=== PATIENT | male | born 1935 | race Caucasian/White ===

== ENCOUNTER → 2016-10-06 | Outpatient (CLI) | payer OTHER ==
[~2016-10-06] MED LIST: ALBUAER19 INH; ASPCH81 PO; ATEN-173 PO; CZR50 PO; HYG25 PO; INSUINJ SC; INSUINJ7 SC; LCTX PO; MOME110A2 IN; MULT-190 PO; PANT40TA PO; SYN50 PO; THEO1TAB14 PO; VANC1INJ10 IV; VANC1INJ10 IV.
--- NOTE | 2016-10-06 09:03 | DIAGNOSTIC IMAGING REPORT ---
RENAL ULTRASOUND HISTORY: Renal insufficiency CHRONIC KIDNEY DISEASE STAGE 3 COMPARISON: None. FINDINGS: Right kidney: Maximum dimension 9.3 cm. No evidence for hydronephrosis. Normal corticomedullary differentiation and cortical thickness. Left kidney: Maximum dimension 11.6 cm. No evidence for hydronephrosis. Normal corticomedullary differentiation and cortical thickness. Bladder: No bladder wall thickening. The bilateral ureteral jets were identified. IMPRESSION: Normal renal ultrasound. Electronically signed by: Tyler Lopez M.D. 10/06/2016 9:02 AM Dictated Date/Time: 10/06/2016 9:01 AM
== END | disposition home or self-care (01) ==
LOC: C.ULTR 08:23
PROVIDERS: ATTEND Family Medicine
DX: N18.3 Chronic kidney disease, stage 3 (moderate) (principal)

== ENCOUNTER → 2016-12-04 | Outpatient (CLI) | payer OTHER ==
[~2016-12-04] MED LIST changes: -THEO1TAB14 PO; +THEO300T14 PO; +[UNRECOGNIZED DRUG - OTHER] INH
== END | disposition home or self-care (01) ==
LOC: C.LABSPEC 17:32
PROVIDERS: ATTEND Podiatrist Foot & Ankle Surgery
DX: L97.509 Non-pressure chronic ulcer of other part of unspecified foot with unspecified severity (principal)

== ENCOUNTER → 2017-04-16 | Outpatient (CLI) | payer OTHER ==
[~2017-04-16] MED LIST changes: +THEO1TAB14 PO; -THEO300T14 PO; -[UNRECOGNIZED DRUG - OTHER] INH
--- NOTE | 2017-04-16 10:31 | DIAGNOSTIC IMAGING REPORT ---
MRI OF THE RIGHT FOOT WITHOUT CONTRAST CLINICAL HISTORY: Right forefoot ulceration. Evaluate for osteomyelitis. COMPARISON STUDY: Right foot radiographs January 08, 2012. TECHNIQUE: Utilizing 1.5 Paty magnet and dedicated coil, multiplanar, multiecho imaging of the right foot was performed without intravenous contrast. FINDINGS: Note is made of amputation of the first digit at the level of the distal proximal phalanx. There is consistent with amputation of the second and fifth toes at the level of the metatarsophalangeal joints. Chronic deformity of the right third metatarsophalangeal joint is noted. A marker was placed on the skin at site of ulceration. This overlies the plantar aspect of the right second metatarsal head. There is moderate edema within the plantar aspect of the second metatarsal head. However, T1 signal is preserved. No additional sites of marrow edema identified within the right foot. There is moderate dorsal soft tissue swelling. No suspicious marrow replacement is present. No mass or fluid collection is identified on this examination. Flexor, extensor and peroneal tendons appear intact. IMPRESSION: 1. No evidence for osteomyelitis within the right foot by MRI. Moderate marrow edema within the plantar aspect of the right second metatarsal head with preserved T1 signal. This suggests osteitis. 2. Wound of the plantar aspect of the right foot, overlying the plantar aspect of the second metatarsal head. 3. Status post amputation of portions of the right first, second and fifth digits, as described above. Electronically signed by: Moustapha Chand M.D. 04/16/2017 10:29 AM Dictated Date/Time: 04/16/2017 10:07 AM
== END | disposition home or self-care (01) ==
LOC: C.MRI 07:20
PROVIDERS: ATTEND Podiatrist Foot & Ankle Surgery
DX: L97.901 Non-pressure chronic ulcer of unspecified part of unspecified lower leg limited to breakdown of skin (principal); Z89.421 Acquired absence of other right toe(s)

== ENCOUNTER 2017-06-30 09:47 | Day surgery (SDC) | payer OTHER ==
[~2017-06-30] VITALS: Ht 182.9 cm; Wt 77.2 kg
[~2017-06-30 09:47] MED LIST changes: -THEO1TAB14 PO; +THEO300T14 PO
[2017-06-30] MEDS ORDERED: [UNRECOGNIZED DRUG - OTHER] INH (10:39)
[2017-06-30 10:43] VITALS: BP 152/77; PULSE 64; TEMP 36.6; O2SAT 98; Ht 182.9 cm; Wt 77.2 kg
[2017-06-30] MEDS ORDERED: FENTANYL CITRATE INJ 50 MCG/1 ML 2 ML VIAL ONE (12:29)
[2017-06-30] MEDS ORDERED: MIDAZOLAM HCL 1 MG/ML 2ML VIAL ONE (12:29)
[2017-06-30] MEDS ORDERED: HEPARIN SOD (PORCINE) 1000 UNIT/ML 10 ML VIAL ONE (12:30)
[2017-06-30] MEDS ORDERED: NiCARDipine HCL INJ 2.5 MG/ML 10 ML AMP ONE (12:31)
[2017-06-30] MEDS ORDERED: NITROGLYCERIN/D5W 100MCG/ML 20ML SYR ONE (12:35)
[2017-06-30 12:49] VITALS: BP 152/77; PULSE 64; TEMP 36.6; O2SAT 98
[2017-06-30] MEDS ORDERED: SODIUM CHLORIDE 0.9% 1000ML IV SCH (13:00)
--- NOTE | 2017-06-30 13:14 | History and Physical ---
History & Physical Date Jun 30, 2017. Chief Complaint Non-healing lower extremity ulceration History of Present Illness Mr. Sanchez is a 82-year-old man with a history of longstanding type 2 diabetes, hypertension, suspected peripheral arterial disease and the longstanding nonhealing right lower extremity wound being followed by Dr. Martin with Podiatry who presents today for peripheral angiogram. Patient reports having wound on the plantar aspect of his foot between the 2nd and 3rd digits for years. Reports increasing pain and plan is for surgery within the next week. He denies any history of prior peripheral arterial interventions. Able to ambulate regularly and denies significant claudication. He is status post amputation of his 1st and 4th and 5th digits on his right foot. Was recently seen by Dr. Zuniga for cardiac preoperative assessment and has plans for a nuclear stress test. Past Medical/Surgical History Type 2 diabetes, chronic left bundle-branch block, dyslipidemia, hypertension, prior osteomyelitis, status post multiple prior toe amputations and prior foot surgery. Additional History Hepatic Disease: No Endocrine Disorder: Yes Kidney Disease: No Hypertension: Yes Heart Disease: No Bleeding Tendencies: No Infectious Diseases: No Allergies Coded Allergies: Lisinopril (Verified Adverse Reaction, Unknown, COUGH, 06/30/17) Home Medications Scheduled Albuterol Inhaler (Ventolin Inhaler), 2 PUFFS INH Q4HR PRN Aspirin (Aspirin Tab-Chewable *), 81 MG PO DAILY Atenolol (Tenormin), 12.5 MG PO DAILY Chlorthalidone (Hygroton *), 12.5 MG PO QAM Insulin (Novolin R), 0 SC QPM Insulin Nph (Humulin-N), 12 UNITS SC DAILY@08 Lactobacillus Acidophilus (Lactinex), 1 TAB PO TIDM Levothyroxine (Synthroid *), 0.05 MG PO DAILY Losartan Potassium (Cozaar *), 50 MG PO QAM Mometasone Furoate (Asmanex 7 Metered Doses), 110 MCG IN DAILY Ocuvite Preservision (Ocuvite Preservision), 1 TAB PO DAILY Pantoprazole (Protonix), 40 MG PO Q2D Physical Examination Skin: warm/dry Eyes: normal inspection (The) Neck: supple Respiratory/Chest: lungs clear, normal breath sounds Cardiovascular: regular rate, rhythm, no edema Back: normal inspection Extremities: + pertinent finding (0.5 cm ulceration with clean white base. The ) Neurologic/Psych: no motor/sensory deficits, alert Diagnosis Lower extremity ulcer Suspected PAD Longstanding Diabetes ASA Classification: ASA Class III Plan of Treatment Proceed with lower extremity angiogram.
--- NOTE | 2017-06-30 13:15 | Procedure Note ---
Pre-Mod Sedation Assessment General Date of Moderate Sedation: Jun 30, 2017. Vital Signs: Vital Signs Past 12 Hours Date Time Temp Pulse Resp B/P (MAP) Pulse Ox O2 Delivery O2 Flow Rate FiO2 06/30/17 12:49 36.6 64 18 152/77 98 Room Air 06/30/17 10:43 36.6 64 18 152/77 (102) 98 Room Air Review Cardiovascular: regular rate, rhythm, no edema Abdomen: normal bowel sounds, non tender Lungs: chest non-tender, lungs clear Pre-Sedation Airway Assessment Oral Cavity: Chipped Teeth, Dental Abnormalities Short Thick Neck: No Hx of Sleep Apnea: No Smoking Status: Former Smoker Mallampati Classification: Class III ASA Classification: Class III Procedure Planning Contraindications-for Mod Sed: None Yes Notes The planned sedation has been discussed with the patient and consent obtained. I have identified the patient, determined the appropriateness of sedation and have assessed the patient immediately prior to the procedure. All medicine(s) and interventions are by my order.
[2017-06-30] MEDS ORDERED: MIDAZOLAM HCL 1 MG/ML 2ML VIAL IV ONE (13:42)
[2017-06-30] MEDS ORDERED: FENTANYL CITRATE INJ 50 MCG/1 ML 2 ML VIAL IV ONE (13:42)
[2017-06-30] MEDS ORDERED: LIDOCAINE HCL 1% 20 ML VIAL INJ ONE (13:43)
[2017-06-30] MEDS ORDERED: HEPARIN SOD (PORCINE) 1000 UNIT/ML 10 ML VIAL IV ONE (13:52)
[2017-06-30] MEDS ORDERED: IODIXANOL (VISIPAQUE) 270 MG/ML 150ML FLUSH ONE (14:20)
[2017-06-30] MEDS ORDERED: SODIUM CHLORIDE 0.9% 1000ML 1,000 ML IV SCH (14:29)
--- NOTE | 2017-06-30 14:29 | Procedure Note ---
Post-Mod Sedation Assessment General Date of Moderate Sedation Jun 30, 2017. Vital Signs: Vital Signs Past 12 Hours Date Time Temp Pulse Resp B/P (MAP) Pulse Ox O2 Delivery O2 Flow Rate FiO2 06/30/17 12:49 36.6 64 18 152/77 98 Room Air 06/30/17 10:43 36.6 64 18 152/77 (102) 98 Room Air Review - Discharge Criteria Vital Signs Stable: Yes Alert/Oriented/Conversant: Yes Returned to Baseline Mental St: Yes Nausea Absent/Minimal: Yes Pain/Discomfort/Absent/Minimal: Yes Normal/Baseline Respirations: Yes Active Bleeding?: No Pt Received D/C Instructions: Yes Prescriptions Given: None Specific Proced. D/C Criteria Distal Pulses Present (Cardiac: Yes Groin site assessed-Card Cath: Yes Voided Prior To Discharge: Yes Discharged Patients Adult Escort/Transportation: Yes
[2017-06-30] MEDS ORDERED: ACETAMINOPHEN 325 MG TAB PO PRN (14:30)
--- NOTE | 2017-06-30 14:41 | [facility] Operative Report ---
Operative Report Operative Date Jun 30, 2017. Pre-Operative Diagnosis Peripheral arterial disease Post-Operative Diagnosis Peripheral arterial disease Procedure(s) Performed Bilateral lower extremity angiography Selective angiography Surgeon Zachary Customer Counter Representative Surgeon(s) J Luis Estimated Blood Loss 10 Findings Abdominal aorta- Mild disease, no aneurysm; patent renal arteries bilaterally Left lower extremity: Common iliac - Minimal disease External iliac - Minimal disease Internal iliac - Minimal disease GUNNER'S MATE - Minimal disease Profunda - Minimal disease SFA - Minimal disease Popliteal - Mild diffuse distal disease TPT - Mild diffuse disease AT - Severe diffuse mid segment disease PT - Moderate diffuse disease Peroneal - Severe diffuse disease, tapers to ankle Dorsalis pedis patent Lateral plantar artery tapers before pedal arch Right lower extremity: Common iliac - Minimal disease External iliac - Minimal disease Internal iliac - Minimal disease GUNNER'S MATE - Minimal disease Profunda - Minimal disease SFA - Minimal disease Popliteal - Mild diffuse disease with 40% focal stenosis TPT - Mild disease AT - Minimal disease, severe stenosis at origin of dorsalis pedis PT - occluded proximally, faint filling in the mid segment, no reconstitution distally Peroneal - Mild to moderate diffuse disease, tapers as reaches ankle Dorsalis pedis - moderate proximal stenosis, occluded distal at deep plantar artery. Good angiographic wound blush noted. Plantar artery - faint partial filling via collaterals. Pedal arch occluded. Summary: 1. Mild non-obstructive disease bilaterally from iliac through popliteal arteries. - 30-40% focal right popliteal stenosis 2. Right lower extremity with 2 vessel distal run-off to the foot - Occluded CASHIER CHECKER - Peroneal with moderate diffuse disease 3. Patent right dorsalis pedis with moderate proximal stenosis. Good angiographic wound blush. Occluded plantar arteries and pedal loop. 4. Left lower extremity with 3 vessel distal run-off with moderate to severe diffuse disease. 5. Patent dorsalis pedis, lateral plantar. Pedal arch occluded. Recommendations: - Continued follow-up with podiatry and Dr. Martin. - At present in-line flow to wound appears adequate for wound healing. Future consideration to RT pedal arch reconstruction could be considered if issues persist in future. Fluids None Drains None Anesthesia Moderate Complication(s) None Disposition Recovery Room / PACU Indications Slow healing lower extremity ulceration Description of Procedure Right radial artery access with 5 Fr sheath. 5000 U Heparin administered Pigtail directed to abdominal aorta over glide-advantage wire. Pigtail exchanged for multipurpose catheter. Multipurpose placed in right and left common iliac arteries. First order angiography of bilateral lower extremities TR Band for hemostasis. No apparent complications. I attest to the content of the Intraoperative Record and any orders documented therein. Any exceptions are noted below.
[2017-06-30 14:50] VITALS: BP 148/67; PULSE 61; TEMP 36.6; O2SAT 97
[2017-06-30 15:35] VITALS: BP 141/69; PULSE 53; TEMP 36.7; O2SAT 97
[2017-06-30 16:05] VITALS: BP 144/80; PULSE 52; TEMP 36.7; O2SAT 97
--- NOTE | 2017-06-30 16:13 | Discharge Instructions ---
Discharge Instructions Procedure Procedure Date: Jun 30, 2017. Reason for Visit: Peripheral Vascular Disease, Bilateral. Discharge Discharge Date: Jun 30, 2017. Discharge Diagnosis: Peripheral arterial disease Last Recorded Wt (Kilograms): 77.2 Anesthesia Post Anesthesia Instructions: If you have had General Anesthesia or IV Sedation: * Do not drive today. * Resume driving when surgeon permits. * Do not make important decisions or sign legal documents today. * Call surgeon for: 1. Temperature elevations greater than 101 degrees F. 2. Uncontrollable pain. 3. Excessive bleeding. 4. Persistent nausea and vomiting. 5. Medication intolerance (nausea, vomiting or rash). * For nausea and vomiting use only clear liquids such as: tea, soda, bouillon until nausea subsides, then gradually increase diet as tolerated. * If you have any concerns or questions, call your surgeon's office. If physician is unavailable and it is an emergency, call 911 or go to the nearest emergency room. Instructions Activity Recommendations: limitations as noted below Recommended Home Diet: resume previous diet Allergies: Coded Allergies: Lisinopril (Verified Adverse Reaction, Unknown, COUGH, 06/30/17) Follow Up Additional Instructions: ACTIVITY RECOMMENDATIONS: Excess manipulation of the wrist should be avoided for the next 24-48 hours. * No lifting over 2 pounds (approximately a 1/2 gallon of milk) with the utilized arm for 24 hours. * No strenuous activity such as bowling or tennis for 3 days. * Keep the site of the procedure covered with a bandage for 24 hours. *You may shower the day after the procedure. Do not take a tub bath or submerge the puncture site in water for the next 3 days. *Do not operate any motorized equipment for 3 days. SPECIAL CARE INSTRUCTIONS: The site may be slightly bruised and sore following your procedure. Should any of the following occur, contact the Dr. who performed your procedure. 1. Redness/inflammation, swelling, chills, or fever, or colored drainage at procedure site within 3-7 days after your procedure. 2. Coldness, discoloration, ongoing numbness, severe pain, or swelling. Expect mild tingling of hand and tenderness at the puncture site for up to three days. If this persists beyond three days, or other symptoms develop, notify the Dr. who performed your procedure. BLEEDING: If the procedure site on your wrist begins to bleed, do not panic 1. Place 1 or 2 fingers firmly just slightly above the insertion site to stop the bleeding. You may be able to feel your pulse as you hold pressure. 2. Lift your finger after 5 minutes to see if the bleeding has stopped. 3. Once the bleeding has stopped, gently wipe the wrist area clean with a bandage. * If the bleeding from your wrist does not stop after 10 minutes, or if there is a large amount of bleeding or spurting, call 911 (do not drive yourself to the hospital). SKIN IRRITATION: * You may experience some redness and/or swelling in the area where radiation was administered. If any skin irritation occurs, please contact your family physician. FOLLOW UP VISIT: Keep any scheduled doctor appointments. Follow-up with: Dr. Martin as scheduled Ailyn Sood Recommendations: Call your doctor if: * Temperature above 101 degrees * Pain not relieved by pain medicine ordered * There is increased drainage or redness from any incision * You have any unanswered questions or concerns. Your Doctors Instructions noted above were prepared by provider Raheel Sharma. Patient Signature Section: Patient Instructions Signature Page Bushra Sanchez Patient (or Guardian) Signature/Date: I have read and understand the instructions given to me by my caregivers. Caregiver/RN/Doctor Signature/Date: The above-named patient and/or guardian has received patient instructions on this date. + Original Patient Signature Page (only) stays with chart. Please make copy for patient.
[2017-06-30 16:50] VITALS: BP 158/72; PULSE 53; TEMP 36.5; O2SAT 99
== END 2017-06-30 17:17 | disposition home or self-care (01) ==
LOC: C.ACU 09:47
PROVIDERS: ATTEND Internal Medicine Interventional Cardiology
DX: E11.51 Type 2 diabetes mellitus with diabetic peripheral angiopathy without gangrene (principal); I73.9 Peripheral vascular disease, unspecified; E11.622 Type 2 diabetes mellitus with other skin ulcer; L97.919 Non-pressure chronic ulcer of unspecified part of right lower leg with unspecified severity; I10 Essential (primary) hypertension; I44.7 Left bundle-branch block, unspecified; E78.5 Hyperlipidemia, unspecified; Z89.429 Acquired absence of other toe(s), unspecified side; Z79.82 Long term (current) use of aspirin; Z79.4 Long term (current) use of insulin

== ENCOUNTER 2017-07-14 06:49 | Day surgery (SDC) | payer OTHER ==
[2017-07-10 08:28] VITALS: BMI 24.0
--- NOTE | 2017-07-13 16:22 | HISTORY & PHYSICAL EXAMINATION ---
DATE OF ADMISSION: 07/14/2017 PREOPERATIVE HISTORY AND PHYSICAL HISTORY OF PRESENT ILLNESS: An 82-year-old male who presents for initial preoperative evaluation. The patient was previously scheduled to have surgery at [facility] as an outpatient; however, due to elevated blood sugar and risk per anesthesia, it was decided to do the patient's surgery at the hospital rather than at an outpatient facility. He has had pain and an ulceration in his right foot for several years ____ condition is graded as 7 on a 10-point scale, gradually worsening over time. Pain is described as 10, onset of the condition is unknown, condition which occurred result of pressure, associated signs and symptoms include tenderness on the right. Debridement does not change the condition, DH sandal has not improved, local wound care does not change the condition, orthotics does not change and shoe gear does not change. Past treatment and tests for this condition include x-rays, antibiotics ____ custom made orthotics, department, DH sandal, local wound care, rest and shoegear modification. Due to the nature and severity of discomfort, the patient is requesting surgical intervention. PAST SURGICAL HISTORY: Hernia repair, carpal tunnel syndrome on the left and foot surgery. PAST MEDICAL HISTORY: Hypertension, diabetes, musculoskeletal arthritis, and asthma. MEDICATIONS: ____ Novolin, ____ albuterol, atenolol, Cipro, Percocet, Humalog, Lantus, levofloxacin, Augmentin and Novolin. ALLERGIES: No known drug allergies. FAMILY HISTORY: Unremarkable. SOCIAL HISTORY: The patient admits to alcohol use, drinking described as social. REVIEW OF SYSTEMS: Unremarkable except chief complaint. PHYSICAL EXAMINATION: VITAL SIGNS: BP 130/74, temperature 96.6. Height 6 feet, white 180 pounds, body mass index 24. CONSTITUTIONAL: The patient appears well-developed and nourished with good attention to body grooming and habitus. HEAD AND FACE: Head is normocephalic and atraumatic without any gross head, face, or neck masses. EYES: Conjunctival and pupillary reaction to light and accommodation are normal. EARS, NOSE, MOUTH, AND THROAT: Unremarkable. NECK: Supple. Trachea is midline. CARDIOVASCULAR: Normal S1, S2 without murmur, gallops, rubs, or clicks noted. Cardiovascular exam is normal. RESPIRATORY: Chest is symmetric. No scars are visible. No port or pacemaker. LUNGS: Clear to auscultation bilaterally. GASTROINTESTINAL: Abdominal organs, bladder, and kidneys show no abnormalities, masses, tenderness, or rigidity. LYMPHATIC: No popliteal, inguinal, or supraclavicular lymphadenopathy noted. LOWER EXTREMITY EXAMINATION: Dorsalis pedis pulse 0/4 on the left. Left posterior tibial pulse and right dorsalis pedis pulse is 1/4. Discoloration of skin is present. Class findings consistent with peripheral vascular disease. Digital hair is absent. DERMATOLOGIC: There is a location of the right second metatarsophalangeal joint and intermetatarsal space ulcerative area measuring 2.71 cm. There is no exposed bone and there is no exposed tendon. Exudate includes dry drainage noticed from the callus tissue. No redness. NEUROLOGICAL: Touch, pin, vibratory pain, proprioception sensations are absent. Epicritic sensation per [place] 5.7 was absent. MUSCULOSKELETAL: Muscle tone is normal. Muscle strength is 5/5. Inspection palpation of bones, joints and muscles ____ amputation of the right fifth digit and metatarsophalangeal joint level interphalangeal joint amputation of the right fourth and fifth and the interphalangeal joint of the first bilaterally. Resection of the posterior left calcaneus with graft and prominence of bone throughout the plantar forefoot is noted. Ankle brachial index on 10/01/2016 shows FARZANEH is normal bilaterally with normal high with medial calcinosis, right posterior tibial artery signal was weak with almost and no audible. No significant large artery occlusive disease. There is evidence of sclerosis disease in the toes, brachial index 0.89 on the right and 1.44 on the left. DATA: MRI of the right foot on 04/16/2017 shows a kamille over the site of the ulceration overlying the plantar aspect of the right second metatarsal head. Moderate edema within the plantar aspect of the second metatarsal head; however, T1 signal was preserved. There was moderate dorsal soft tissue swelling, no evidence of osteomyelitis within the right foot by MRI, moderate marrow edema within the plantar aspect of the second metatarsal head with preserved T1 signal do suggest osteitis. IMPRESSION: 1. Walsh grade 2, right second and third metatarsophalangeal joint. 2. 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 3. Peripheral vascular disease. PLAN: The patient has been cleared, cardiac recommended vancomycin 48 hours before and 24 hours before due to history of the open ulceration, due to unable to offload the forefoot with restriction and lifestyle. The patient leads to proceed with panmetatarsal head resection of right second and third and incision and drainage on the right foot. He realized this is an elective type procedure. He is also aware that he may lose his foot more proximally due to peripheral vascular disease is present. We had Dr. Sharma look at the patient preoperatively who ascertained that the dorsal blood supply was more preserved than the plantar supply and a dorsal approach may be well suited for this procedure. General anesthesia as an outpatient at the hospital will be performed. The procedure, risks and complications were fully reviewed with the patient. Consent form and foot diagram and illustration reviewed in all their entirety. All the patient's questions were answered. Complications were discussed in detail with the patient including pain, infection, swelling that may or may not be excessive, pins and needles feeling, numbness, metatarsalgia, excessive bleeding, delay or nonhealing of bone, delay or nonhealing of skin, enlarged scar, failure of the procedure, reoccurrence or worsening condition which may or may not require further surgery, adverse reaction to anesthesia, allergic reaction to suture or other implant material, loss of toe, foot, or leg, flail toe, stiff toe, short toe, elevated toe, transfer lesion or callus, peripheral neurovascular complications such as phlebitis, damage to nerves or vascular structures, recurrent pain, chronic nerve pain or damage, and general medical complications. The patient will be required to be in a surgery shoe for a minimum of 1-2 weeks and not return to dress shoes for 2-4 weeks depending on the postop edema. The patient is aware this is an elective type procedure and I recommend a second opinion. The patient stated that he will be weightbearing immediately postoperatively with assistance of crutches and the patient stated he understood. Consent form was signed with a copy of the foot diagram and illustration given to patient. Verbal and written postop instructions were given. The patient will return to the office for postop check or sooner if medically necessary. He will be placed on Augmentin and Cipro postoperatively and will be given vancomycin preoperatively.
[~2017-07-14] VITALS: Ht 182.9 cm; Wt 81.0 kg
[~2017-07-14 06:49] MED LIST changes: -ALBUAER19 INH; -ASPCH81 PO; +ASPI81TA28 PO; -CZR50 PO; +HYG/25 PO; -HYG25 PO; +INSHNI SQ; -INSUINJ SC; -INSUINJ7 SC; +LACTATED RINGER'S 1000ML 1,000 ML IV SCH; -LCTX PO; +LEVO100T7 PO; +LOSA1TAB PO; -MOME110A2 IN; +MOME16.7 INH; +NVLRB SQ; +ROPIVACAINE 0.5% 5 MG/ML 30 ML VIAL ONE; -SYN50 PO; -THEO300T14 PO; -VANC1INJ10 IV; -VANC1INJ10 IV.; +VANCOMYCIN INJ 1,250 MG in SODIUM CHLORIDE 0.9% 250ML 250 ML IV SCH; +VNTHFA/IN INH
[2017-07-14] MEDS ORDERED: ONDANSETRON INJ 2 MG/ML 2 ML VIAL ONE (07:44)
[2017-07-14] MEDS ORDERED: LIDOCAINE HCL 2% 2 ML VIAL (20MG/ML) ONE (07:44)
[2017-07-14] MEDS ORDERED: PROPOFOL IV EMULSION 10 MG/ML 20 ML VIAL IV ONE (07:44)
[2017-07-14] MEDS ORDERED: FENTANYL CITRATE INJ 50 MCG/1 ML 2 ML VIAL ONE (07:45)
[2017-07-14] MEDS ORDERED: MIDAZOLAM HCL 1 MG/ML 2ML VIAL ONE (07:45)
[2017-07-14 07:56] VITALS: BP 108/48; PULSE 56; TEMP 36.5; O2SAT 98; Ht 182.9 cm; Wt 81.0 kg
[2017-07-14] MEDS ORDERED: ATROPINE SULFATE 0.1 MG/ML 5ML SYR IV PRN (08:45)
[2017-07-14] MEDS ORDERED: FENTANYL CITRATE INJ 50 MCG/1 ML 2 ML VIAL IV PRN (08:45)
[2017-07-14] MEDS ORDERED: ONDANSETRON INJ 2 MG/ML 2 ML VIAL IV PRN (08:45)
[2017-07-14] MEDS ORDERED: EpHEDrine SULFATE INJ 50 MG/ML AMP IV PRN (08:45)
[2017-07-14] MEDS ORDERED: EpHEDrine SULFATE INJ 50 MG/ML AMP ONE (09:15)
--- NOTE | 2017-07-14 10:32 | History & Physical Bridge Note ---
H&P Re-Evaluation Bridge Note: I have examined the patient, reviewed the History & Physical and in the interval since the performance of the History & Physical I have noted the following changes of clinical significance: No changes noted
[2017-07-14] MEDS ORDERED: SODIUM CHLORIDE 0.9% 1000ML 1,000 ML IV SCH ×2 (10:34)
--- NOTE | 2017-07-14 10:34 | Discharge Instructions ---
Discharge Instructions Date of Service Jul 14, 2017. Admission Reason for Admission: Right Lower Extremity Ulceration Discharge Discharge Diagnosis / Problem: same as diagnosis Discharge Goals Goal(s): Improve function Activity Recommendations Activity Limitations: as noted below . Instructions / Follow-Up Instructions / Follow-Up Medications: * Resume previous medications unless instructed by your surgeon. * Take your medications as prescribed. Call our office ([phone]) at any time, if you experience severe pain that does not subside shortly after taking your pain medication. Activity: * You may walk on your operated foot/ankle using the surgical shoe or cast/splint. Do not put any weight on your operated foot/ankle without wearing the surgical shoe or cast sandal.. Special Care: * Keep your bandage clean and dry. Do not remove your bandage unless otherwise instructed. A small amount of blood may appear on the bandage over the surgical site. Call our office ([phone]) if you bandage becomes blood-soaked or wet. * Elevate your operated foot/ankle on pillows, above the level of your heart, as often as possible during the first 2-3 days following surgery. Keep your knee flexed slightly with a pillow under your knee when you elevate your foot/ankle. * Apply a ice bag to your foot/ankle over the operative site for 20-30 minutes out of each hour while you are awake. Do not allow the ice bag to directly contact bare skin. * Avoid bumping or handling any pins visible in your toes. If any pin feels or appears loose, call the office ([phone]). * Take your oral temperature in the morning and at bedtime. Call our office ([phone]) if your temperature rises above 101 degrees Fahrenheit. Call your surgeon's office at ([phone]) for any problems or concerns such as excessive bleeding and/or pain unrelieved by your prescribed pain medications. If you have any questions, please do not hesitate to ask them. Avoid all tobacco products. If you need help to stop smoking, call [place]'s FREE QUITLINE at . This is a free call. Follow-up: Follow-up with Dr. Martin Current Hospital Diet Patient's current hospital diet: Discharge Diet Recommended Diet: AHA Diet (Heart Healthy), Diabetes Type 1 Diet, Diabetes Type 2 Diet Pending Studies Studies pending at discharge: no Laboratory Results Hemoglobin A1c Test 05/21/17 10:03 Range/Units Estimated Average Glucose 157 mg/dl Hemoglobin A1c 7.1 H 4.5-5.6 % Medical Emergencies . Who to Call and When: Medical Emergencies: If at any time you feel your situation is an emergency, please call 911 immediately. . Non-Emergent Contact Non-Emergency issues call your: Primary Care Provider . "Provider Documentation" section prepared by Christin Montgomery. . VTE Core Measure Inpt VTE Proph given/why not?: Treatment not tolerated
[2017-07-14] MEDS ORDERED: BACITRACIN 50000 UNIT VIAL ONE (10:38)
[2017-07-14] MEDS ORDERED: BUPIVACAINE 0.5 % 5 MG/1 ML MPF 30ML VIAL ONE (10:38)
--- NOTE | 2017-07-14 12:49 | OPERATIVE REPORT ---
DATE OF OPERATION: 07/14/2017 PREOPERATIVE DIAGNOSES: 1. 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 2. 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 3. 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 POSTOPERATIVE DIAGNOSES: Same. PROCEDURES: 1. Resection moore metatarsal head, right 2nd and 3rd. 2. Resection of base of the proximal phalanx, right third. 3. I&D right leg. SURGEON: Dr. Martin. ANESTHESIA: General with local field block performed with 0.5% Marcaine plain, total of 30 mL. HEMOSTASIS: Pneumatic thigh tourniquet inflated to a level of 250 mmHg for a total tourniquet time of 46 minutes. ESTIMATED BLOOD LOSS: Less than 5 mL. MATERIALS: 2-0, 3-0 Vicryl, 3-0 nylon. INJECTABLES: None. COMPLICATIONS: None. The patient tolerated the procedure and anesthesia well without complications, transferred to recovery room with vital signs stable and neurovascular status intact. PROCEDURE: The patient was brought to the OR and placed on the OR table in supine position. Upon completion of general anesthesia by the anesthesia department, a local field block was performed with the above-mentioned anesthetic. The extremity was scrubbed, prepped and draped in the usual aseptic fashion. Attention was directed to the dorsal aspect between the second and third metatarsals where a linear incision was made between the 2 metatarsals after carefully being drawn out with the fluoroscan to minimize dissection towards the base of the 3rd toe. The heads of the metatarsals second and third were removed. The second metatarsal was sent separately as the ulceration was communicating not communicating, however was overlying the second met head area. There was no zoltan purulence. There was no communication of the ulceration to the bone level. Base of the proximal phalanx, the third toe that was synostosed to the other metatarsals was also removed. Minimal dissection took place as possible, only removing the bony prominences. The area was irrigated with 3000 units with bacitracin 1:1000 and normal sterile saline. The patient tolerated the procedure and anesthesia well. Closure began using 2-0 Vicryl in the deep structures. Superficial deep structures were closed using 3-0 Vicryl, skin margins were reopposed with 3-0 nylon in a simple interrupted fashion. Dry sterile dressing was applied with no compression consisting of Adaptic, 4 x 4's, Kerlix and an THOMAS. The patient tolerated the procedure and anesthesia well without complications, transferred to recovery room with vital signs stable and neurovascular status intact. I attest to the content of the Intraoperative Record and any orders documented therein. Any exception s are noted below.
[2017-07-14 12:50] VITALS: BP 124/42; PULSE 69; TEMP 36.2; O2SAT 99
[2017-07-14 13:20] VITALS: BP 125/52; PULSE 68; O2SAT 100
--- NOTE | 2017-07-14 13:37 | Anesthesiology Progress Note ---
Anesthesia Post Op Note Date & Time Jul 14, 2017 at 13:37 Vital Signs Pain Intensity: 0 Vital Signs Past 12 Hours Date Time Temp Pulse Resp B/P (MAP) Pulse Ox O2 Delivery O2 Flow Rate FiO2 07/14/17 13:20 68 18 125/52 100 Room Air 07/14/17 12:50 36.2 69 18 124/42 99 Room Air 07/14/17 12:40 36.3 67 16 119/53 96 Room Air 07/14/17 12:30 67 16 120/53 100 Oxymask 7 07/14/17 12:20 66 16 120/51 100 Oxymask 7 07/14/17 12:10 36.4 68 16 130/55 100 Oxymask 7 07/14/17 07:56 36.5 56 18 108/48 (68) 98 Room Air Notes Mental Status: alert / awake / arousable, participated in evaluation Pt Amnestic to Procedure: Yes Nausea / Vomiting: adequately controlled Pain: adequately controlled Airway Patency, RR, SpO2: stable & adequate BP & HR: stable & adequate Hydration State: stable & adequate Anesthetic Complications: no major complications apparent
[2017-07-14 13:50] VITALS: BP 134/54; PULSE 73; TEMP 36.5; O2SAT 98
--- NOTE | 2017-07-14 14:15 | DIAGNOSTIC IMAGING REPORT ---
R FOOT 2 VIEWS CLINICAL HISTORY: 82 years-old Male presenting with RT 2 AND 3 METATARSAL RECONSTRUCTION. TECHNIQUE: 2 fluoroscopic spot image(s) obtained as part of an intraoperative procedure. COMPARISON: MR from 04/16/2017. FINDINGS/IMPRESSION: Postsurgical changes of the second and fifth toe amputations. 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 These are unchanged since the prior exam. Interval resection of the heads of the second and third metatarsals new from prior. Please see surgical report for further details. Fluoroscopy dosage (mGy): 0.38. Fluoroscopy time: 19.7 seconds. Number of fluoroscopic spot images: 2. Electronically signed by: Tre Billingsley M.D. 07/14/2017 2:14 PM Dictated Date/Time: 07/14/2017 2:12 PM
== END 2017-07-14 13:55 | disposition home or self-care (01) ==
LOC: C.ACU 06:49
PROVIDERS: ATTEND Podiatrist Foot & Ankle Surgery
DX: E11.621 Type 2 diabetes mellitus with foot ulcer (principal); L97.901 Non-pressure chronic ulcer of unspecified part of unspecified lower leg limited to breakdown of skin; E11.42 Type 2 diabetes mellitus with diabetic polyneuropathy; E11.51 Type 2 diabetes mellitus with diabetic peripheral angiopathy without gangrene; Q78.8 Other specified osteochondrodysplasias; I12.9 Hypertensive chronic kidney disease with stage 1 through stage 4 chronic kidney disease, or unspecified chronic kidney disease; J45.909 Unspecified asthma, uncomplicated; M19.90 Unspecified osteoarthritis, unspecified site; Z79.4 Long term (current) use of insulin; Z79.899 Other long term (current) drug therapy; K21.9 Gastro-esophageal reflux disease without esophagitis; N18.3 Chronic kidney disease, stage 3 (moderate); Z72.0 Tobacco use; Z86.718 Personal history of other venous thrombosis and embolism

== ENCOUNTER → 2017-10-15 | Outpatient (CLI) | payer OTHER ==
[~2017-10-15] MED LIST changes: -LACTATED RINGER'S 1000ML 1,000 ML IV SCH; -ROPIVACAINE 0.5% 5 MG/ML 30 ML VIAL ONE; -VANCOMYCIN INJ 1,250 MG in SODIUM CHLORIDE 0.9% 250ML 250 ML IV SCH
== END | disposition home or self-care (01) ==
LOC: C.LABSPEC 17:15
PROVIDERS: ATTEND Podiatrist Foot & Ankle Surgery
DX: L97.509 Non-pressure chronic ulcer of other part of unspecified foot with unspecified severity (principal)